=== PATIENT | female | born 1995 | race Two or more races ===

== ENCOUNTER 2019-12-10 09:16 | Emergency (ER) | payer BC ==
--- NOTE | 2019-12-10 11:10 | ER Document Report ---
ED Medical Screen (RME) - General Chief Complaint: Vaginal Bleeding Stated Complaint: VAGINAL BLEEDING,PELVIC PAIN Time Seen by Provider: 12/10/19 11:06 Primary Care Provider: DOMINIC BELLE PA-C [Primary Care Provider] - Follow up as needed Notes: HPI: 24-year-old female presenting to the emergency department complaining of significant pelvic cramping that began yesterday and has been constant until today. Patient began having vaginal bleeding this morning that was very heavy states she has gone through 5 tampons today so far. No fever nausea or vomiting. Patient is unsure whether she may be . Last menstrual cycle was 2 weeks ago and was a normal cycle. No history of prior significantly heavy menstrual cycles I have greeted and performed a rapid initial assessment of this patient. A comprehensive ED assessment and evaluation of the patient, analysis of test results and completion of the medical decision making process will be conducted by additional ED providers PHYSICAL EXAMINATION: GENERAL: Well-appearing, well-nourished and in mild acute distress. HEAD: Atraumatic, normocephalic. EYES: sclera anicteric, conjunctiva are normal. ENT: Moist mucous membranes. NECK: Normal range of motion LUNGS: Normal work of breathing, clear to auscultation HEART: 2+ radial pulses bilaterally, regular rate and rhythm ABD: limited by positioning for exam in triage. Mild tenderness across the pe lvis on palpation EXTREMITIES: no pitting or edema. No cyanosis. NEUROLOGICAL: No focal neurological deficits. Moves all extremities spontaneously and on command. PSYCH: Normal mood, normal affect. SKIN: Warm, Dry, normal turgor, no rashes or lesions noted. - Related Data Allergies/Adverse Reactions: No Known Allergies Allergy (Verified 12/10/19 11:04) Physical Exam - Vital signs Vitals: Temp Pulse Resp BP Pulse Ox 98.0 F 70 20 119/68 100 12/10/19 09:12/10/19 09:12/10/19 09:12/10/19 09:12/10/19 09:26 Course - Vital Signs Vital signs: Temp Pulse Resp BP Pulse Ox 98.0 F 70 20 119/68 100 12/10/19 09:26 12/10/19 09:12/10/19 09:26 12/10/19 09:12/10/19 09:26 Doctor's Discharge - Discharge Referrals: DOMINIC BELLE PA-C [Primary Care Provider] - Follow up as needed
[2019-12-10 12:15] LABS: ABSOLUTE EOSINOPHILS # (AUTO) 0.1 10^3/uL (0.0-0.6); ABSOLUTE LYMPHOCYTES (AUTO) 1.4 10^3/uL (0.5-4.7); ABSOLUTE MONOCYTES (AUTO) 0.4 10^3/uL (0.1-1.4); BASOPHILS % (AUTO) 0.4 % (0-2); EOSINOPHILS % (AUTO) 2.4 % (0-6); HEMATOCRIT 39.6 % (36.0-47.0); HEMOGLOBIN 14.5 g/dL (12.0-15.5); LYMPHOCYTES % (AUTO) 28.1 % (13-45); MEAN CORPUSCULAR HEMOGLOBIN 32.3 pg (27.0-33.4); MEAN CORPUSCULAR HGB CONC 36.5 g/dL (32.0-36.0); MEAN CORPUSCULAR VOLUME 88 fl (80-97); MONOCYTES % (AUTO) 7.8 % (3-13); PLATELET COUNT 236 10^3/uL (150-450); RED BLOOD COUNT 4.48 10^6/uL (3.72-5.28); RED CELL DISTRIBUTION WIDTH 12.6 % (11.5-14.0); SEGMENTED NEUTROPHILS % (AUTO) 61.3 % (42-78); TOTAL CELLS COUNTED % (AUTO) 100 %; WHITE BLOOD COUNT 4.9 10^3/uL (4.0-10.5)
[2019-12-10 12:24] LABS: APPEARANCE,URINE SLIGHTLY-CLOUDY; BILIRUBIN,URINE NEGATIVE (NEGATIVE); COLOR,URINE YELLOW; GLUCOSE, URINE NEGATIVE (NEGATIVE); KETONES,URINE 20 mg/dL (NEGATIVE); LEUKOCYTE ESTERASE,URINE NEGATIVE (NEGATIVE); NITRITE,URINE NEGATIVE (NEGATIVE); PROTEIN,URINE NEGATIVE (NEGATIVE); URINE SPECIFIC GRAVITY 1.024; UROBILINOGEN,URINE NEGATIVE mg/dL (<2.0)
[2019-12-10 12:37] LABS: ALBUMIN 4.4 g/dL (3.5-5.0); ALKALINE PHOSPHATASE 61 U/L (38-126); ANION GAP 9 (5-19); ASPARTATE AMINO TRANSFERASE 21 U/L (14-36); BILIRUBIN,DIRECT 0.2 mg/dL (0.0-0.4); BILIRUBIN,TOTAL 0.8 mg/dL (0.2-1.3); BLOOD UREA NITROGEN 9 mg/dL (7-20); CALCIUM 9.5 mg/dL (8.4-10.2); CARBON DIOXIDE 24 mmol/L (22-30); CHLORIDE 104 mmol/L (98-107); GLUCOSE 76 mg/dL (75-110); POTASSIUM 3.9 mmol/L (3.6-5.0); TOTAL PROTEIN 7.1 g/dL (6.3-8.2)
--- NOTE | 2019-12-10 14:32 | ER Document Report ---
ED General - General Chief Complaint: Vaginal Bleeding Stated Complaint: VAGINAL BLEEDING,PELVIC PAIN Time Seen by Provider: 12/10/19 11:06 Primary Care Provider: DOMINIC BELLE PA-C [Primary Care Provider] - Follow up as needed TRAVEL OUTSIDE OF THE [place] IN LAST 30 DAYS: No - HPI Notes: 24-year-old female to the emergency department with complaints of pelvic cramping and vaginal bleeding that began yesterday. She states that she had a last menstrual period 2 weeks ago and she does not typically have abnormal periods. She states that she could be . She denies any urinary symptoms or vaginal discharge. She states that she does have painful periods. She is not taken anything for her symptoms. - Related Data Allergies/Adverse Reactions: No Known Allergies Allergy (Verified 12/10/19 11:04) Past Medical History - General Information source: Patient - Social History Smoking Status: Never Smoker Frequency of alcohol use: None Drug Abuse: None Family History: Reviewed & Not Pertinent Patient has suicidal ideation: No Patient has homicidal ideation: No Physical Exam - Vital signs Vitals: Temp Pulse Resp BP Pulse Ox 98.0 F 70 20 119/68 100 12/10/19 09:26 12/10/19 09:26 12/10/19 09:26 12/10/19 09:26 12/10/19 09:26 Interpretation: Normal - General General appearance: Appears well, Alert In distress: None - HEENT Head: Normocephalic, Atraumatic Eyes: Normal Pupils: PERRL - Respiratory Respiratory status: No respiratory distress Chest status: Nontender Breath sounds: Normal. No: Rales, Rhonchi, Wheezing Chest palpation: Normal - Cardiovascular Rhythm: Regular Heart sounds: Normal auscultation Murmur: No - Abdominal Inspection: Normal Distension: No distension Bowel sounds: Normal Tenderness: Nontender. No: Tender, McBurney's point, Edwards's sign, Guarding, Rebound Organomegaly: No organomegaly - Genitourinary External exam: Normal Speculum exam: Cervix closed Vaginal bleeding: Mild Bimanuel exam: Normal. No: Cervical motion tender, Adnexal mass, Adnexal tenderness Notes: chaperoned by DONALD Reddy. - Back Back: Normal, Nontender. 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 No: Pronator drift Sensory: Normal - Psychological Associated symptoms: Normal affect, Normal mood - Skin Skin Temperature: Warm Skin Moisture: Dry Skin Color: Normal Course - Re-evaluation Re-evalutation: 12/10/19 Impression: Vaginal bleeding, pelvic cramping. Urinalysis is reassuring. Patient is not . H&H is stable. Will send home with muscle relaxants. [employer] [facility] follow-up. - Vital Signs Vital signs: Temp Pulse Resp BP Pulse Ox 98.0 F 70 20 119/68 100 12/10/19 09:26 12/10/19 09:26 12/10/19 09:26 12/10/19 09:26 12/10/19 09:26 - Laboratory Result Diagrams: 12/10/19 11:40 12/10/19 11:40 Laboratory results interpreted by me: 12/10/19 12/10/19 12/10/19 11:40 11:40 11:45 MCHC 36.5 H Creatinine 0.51 L Urine Ketones 20 H Urine Blood SMALL H Discharge - Discharge Clinical Impression: Abnormal vaginal bleeding, Pelvic cramping, Negative test Condition: Stable Disposition: HOME, SELF-CARE Instructions: Vaginal Bleeding ([facility]) Additional Instructions: TAKE MEDICINES PRESCRIBED. TODAY YOU HAD A NEGATIVE TEST. FOLLOW UP WITH STRATEGIC ALLIANCES MANAGER. RETURN IF WORSENING SYMPTOMS. WE WILL CALL YOU IF THERE ARE ANY ABNORMALITIES WITH YOUR VAGINAL SWABS. Prescriptions: Methocarbamol [Robaxin 500 mg Tablet] 500 mg PO QID PRN #20 tablet PRN Reason: Referrals: DOMINIC BELLE PA-C [Primary Care Provider] - Follow up as needed
[2019-12-10 15:49] VITALS: BP 120/64
[2019-12-10 15:59] LABS: RBCS (WET MOUNT) 1+ RBCS SEEN; T.VAGINALIS (WET MOUNT) NO TRICHOMONAS SEEN; WBCS (WET MOUNT) RARE WBCS SEEN; YEAST (WET MOUNT) NO YEAST SEEN
[2019-12-10 16:53] LABS: CHLAM PCR NOT DETECTED (NOT DETECT)
== END 2019-12-10 15:55 | disposition home or self-care (01) ==
LOC: ER 09:16
DX: Z32.02 Encounter for pregnancy test, result negative (principal); N93.9 Abnormal uterine and vaginal bleeding, unspecified; R10.2 Pelvic and perineal pain
CPT/HCPCS: 36415; 80053; 81001; 81025; 85025; 87210; 87491; 87591; 99284